=== PATIENT | female | born 2000 | race Caucasian/White ===

== ENCOUNTER → 2020-10-28 | Outpatient (CLI) | payer BC, OTHER ==
[~2020-10-28] MED LIST: COLACE100 MG PO; FERREX 150 FOR1 EACH PO; GUMMIES CHILDR1 EACH PO; IBUPROFEN800 MG PO; LEVOTHYROXINE150 MCG PO
== END ==
LOC: GENOP 02:50
DX: O62.4 Hypertonic, incoordinate, and prolonged uterine contractions (principal); Z3A.38 38 weeks gestation of pregnancy
CPT/HCPCS: G0463

== ENCOUNTER 2020-10-31 17:09 | Inpatient (IN) | payer BC, OTHER ==
[~2020-10-31] VITALS: Ht 165.1 cm; Wt 90.7 kg
[2020-10-31] MEDS ORDERED: LEVOTHYROXINE150 MCG PO (18:48)
[2020-10-31] MEDS ORDERED: GUMMIES CHILDR1 EACH PO (18:49)
[2020-10-31 18:55] LABS: HEMOGLOBIN 9.7 gm/dl (12.3-15.3); RED BLOOD COUNT 4.06 M/UL (4.00-5.10); WHITE BLOOD COUNT 11.4 K/UL (4.5-11.0)
[2020-11-02 05:57] LABS: HEMOGLOBIN 7.4 gm/dl (12.3-15.3)
[2020-11-02] MEDS ORDERED: FERREX 150 FOR1 EACH PO (14:29)
[2020-11-02] MEDS ORDERED: IBUPROFEN800 MG PO (14:29)
[2020-11-02] MEDS ORDERED: COLACE100 MG PO (14:29)
== END 2020-11-03 14:34 | disposition home or self-care (01) | DRG 807 ==
LOC: GENOP 17:09 → CDU 18:12 → OB 18:12
PROVIDERS: ADMIT Obstetrics & Gynecology
PROC: 10E0XZZ Delivery of Products of Conception, External Approach (ICD-10-PCS; principal; 2020-11-01)
PROC: 0W8NXZZ Division of Female Perineum, External Approach (ICD-10-PCS; 2020-11-01)
PROC: 10907ZC Drainage of Amniotic Fluid, Therapeutic from Products of Conception, Via Natural or Artificial Opening (ICD-10-PCS; 2020-11-01)
DX: O99.284 Endocrine, nutritional and metabolic diseases complicating childbirth (principal); Z37.0 Single live birth; E03.9 Hypothyroidism, unspecified; Z20.822 Contact with and (suspected) exposure to COVID-19; Z3A.38 38 weeks gestation of pregnancy; Z28.21 Immunization not carried out because of patient refusal
CPT/HCPCS: 36415; 51702; 81001; 85014; 85018; 85025; J2405; J2590; J2795; J7120; U0002

== ENCOUNTER → 2021-05-29 | Outpatient (CLI) | payer BC, OTHER | LOC: KOH-I 05-19 14:30 | DX: E04.9 Nontoxic goiter, unspecified (principal) | CPT/HCPCS: 76536 ==